=== PATIENT | male | born 1960 | race African-American/Black ===

== ENCOUNTER 2022-05-11 14:18 | Inpatient (IN) | payer OTHER ==
[2022-05-11 15:48] VITALS: BMI 17.6
[2022-05-11] MEDS ORDERED: IBUPROFEN 600 MG TABLET (FP) PO PRN (16:53)
[2022-05-11] MEDS ORDERED: BENZOCAINE/MENTHOL (CHLORASEPTIC ) LOZENGE MM PRN (16:53)
[2022-05-11] MEDS ORDERED: MAG HYDROX/AL HYDROX/SIMETH 30 ML UNIT-DOSE CUP PO PRN (16:53)
[2022-05-11] MEDS ORDERED: LOPERAMIDE HCL 2 MG CAPSULE PO PRN (16:53)
[2022-05-11] MEDS ORDERED: DICYCLOMINE HCL 10 MG CAPSULE PO PRN (16:53)
[2022-05-11] MEDS ORDERED: IBUPROFEN 400 MG TABLET (FP) PO PRN (16:53)
[2022-05-11] MEDS ORDERED: ONDANSETRON *ODT* 4 MG TABLET SL PRN (16:53)
[2022-05-11] MEDS ORDERED: BISMUTH SUBSALICYLATE 524 MG/30 ML PO PRN (16:53)
[2022-05-11] MEDS ORDERED: MAGNESIUM HYDROX 2400MG/30ML ORAL SUSPENSION 30 ML CUP PO PRN (16:53)
[2022-05-11] MEDS ORDERED: ACETAMINOPHEN 325 MG TABLET (FP) PO PRN ×2 (16:53)
[2022-05-11] MEDS ORDERED: NICOTINE 10 MG CARTRIDGE (INHALER) IH PRN (16:53)
[2022-05-11] MEDS ORDERED: METHOCARBAMOL 500 MG TABLET PO PRN (16:53)
[2022-05-11] MEDS ORDERED: MAGNESIUM CITRATE 300 ML BOTTLE PO PRN (16:53)
[2022-05-11] MEDS: PRENATAL VITAMINS W/ FOLIC ACID TABLET (FP) PO SCH (18:32)
[2022-05-11] MEDS: hydrOXYzine PAMOATE 25 MG CAPSULE (FP) PO SCH ×2 (18:42→22:26)
[2022-05-11] MEDS ORDERED: amLODIPine BESYLATE 5 MG TABLET (FP) PO ONE (19:03)
[2022-05-11] MEDS ORDERED: QUEtiapine FUMARATE 400 MG TABLET PO ONE (22:00)
[2022-05-11] MEDS ORDERED: QUEtiapine FUMARATE 200 MG TABLET PO ONE (22:00)
[2022-05-11] MEDS ORDERED: traZODone HCL 150 MG TABLET PO ONE (22:00)
[2022-05-11] MEDS ORDERED: traZODone HCL 50 MG TABLET (FP) PO ONE (22:00)
[2022-05-11] MEDS: MELATONIN 5 MG TABLETS PO SCH (22:25)
[2022-05-11] MEDS: THIAMINE HCL 100 MG TABLET (FP) PO SCH (22:25)
[2022-05-12] MEDS: hydrOXYzine PAMOATE 25 MG CAPSULE (FP) PO SCH (07:10)
[2022-05-12] MEDS ORDERED: hydrOXYzine PAMOATE 25 MG CAPSULE (FP) PO PRN (09:38)
[2022-05-12] MEDS ORDERED: methaDONE HCL 10 MG TABLET PO SCH (09:45)
[2022-05-12] MEDS: methaDONE 80 MG, methaDONE 20 MG PO SCH (09:52)
[2022-05-12] MEDS: PRENATAL VITAMINS W/ FOLIC ACID TABLET (FP) PO SCH (09:53)
[2022-05-12 10:10] LABS: HEMOGLOBIN 10.9 GM/dL (11.7-16.9); MCHC 33.1 g/dl (32.0-35.9); MEAN CELL VOLUME 87.7 fl (80-96); MEAN PLT VOLUME 8.5 fl (7.5-11.1); PLATELET COUNT 261 10^3/uL (134-434); RBC 3.76 M/mm3 (4.00-5.60); RDW 12.5 % (11.9-15.9); WHITE BLOOD COUNT 8.2 K/mm3 (4.0-10.0)
[2022-05-12 10:17] LABS: CALCIUM 8.9 mg/dL (8.5-10.1)
[2022-05-12 10:18] LABS: ALBUMIN 3.2 g/dl (3.4-5.0); BLOOD UREA NITROGEN 7.3 mg/dL (7-18)
[2022-05-12 10:21] LABS: CREATININE 0.9 mg/dL (0.55-1.3)
[2022-05-12] MEDS: amLODIPine BESYLATE 5 MG TABLET (FP) PO SCH (10:21)
[2022-05-12 10:22] LABS: BILIRUBIN,TOTAL 0.8 mg/dL (0.2-1); TOT PROT 7.8 g/dl (6.4-8.2)
[2022-05-12] MEDS ORDERED: traZODone HCL 100 MG TABLET (FP) PO SCH (22:00)
[2022-05-12] MEDS ORDERED: QUEtiapine FUMARATE 200 MG TABLET PO SCH ×2 (22:00)
[2022-05-12] MEDS ORDERED: QUEtiapine FUMARATE 400 MG TABLET PO SCH (22:00)
[2022-05-12] MEDS: THIAMINE HCL 100 MG TABLET (FP) PO SCH (22:24)
[2022-05-12] MEDS: MELATONIN 5 MG TABLETS PO SCH (22:24)
[2022-05-13] MEDS: methaDONE 80 MG, methaDONE 20 MG PO SCH (05:49)
[2022-05-13 09:40] VITALS: BP 136/81; PULSE 67; RESP 18; TEMP 97.1
[2022-05-13] MEDS: amLODIPine BESYLATE 5 MG TABLET (FP) PO SCH (10:22)
[2022-05-13] MEDS: PRENATAL VITAMINS W/ FOLIC ACID TABLET (FP) PO SCH (10:22)
== END 2022-05-13 11:14 | disposition home or self-care (01) | DRG 773 ==
LOC: YASAS 14:18 → Y3N 17:25
PROVIDERS: ADMIT Allergy & Immunology; ATTEND Surgery
PROC: HZ2ZZZZ Detoxification Services for Substance Abuse Treatment (ICD-10-PCS; principal; 2022-05-11)
DX: F10.230 Alcohol dependence with withdrawal, uncomplicated (principal); F11.10 Opioid abuse, uncomplicated; F12.10 Cannabis abuse, uncomplicated; F17.210 Nicotine dependence, cigarettes, uncomplicated; F32.A Depression, unspecified; G47.00 Insomnia, unspecified; Z56.0 Unemployment, unspecified
CPT/HCPCS: 36415; 80053; 80061; 85027; 86780; C9803-CS; U0003; U0005

== ENCOUNTER 2022-11-24 13:52 | Inpatient (IN) | payer OTHER ==
[2022-11-24 14:42] VITALS: BMI 16.6
[2022-11-24] MEDS ORDERED: ONDANSETRON *ODT* 4 MG TABLET SL PRN (18:51)
[2022-11-24] MEDS ORDERED: P-EPHED 60MG/TRIPROLIDI 2.5MG TABLET PO PRN (18:51)
[2022-11-24] MEDS ORDERED: DICYCLOMINE HCL 10 MG CAPSULE PO PRN (18:51)
[2022-11-24] MEDS ORDERED: guaiFENesin 200 MG/10 ML 10 ML UNIT-DOSE CUPS PO PRN (18:51)
[2022-11-24] MEDS ORDERED: ACETAMINOPHEN 325 MG TABLET (FP) PO PRN (18:51)
[2022-11-24] MEDS ORDERED: IBUPROFEN 400 MG TABLET (FP) PO PRN (18:51)
[2022-11-24] MEDS ORDERED: LOPERAMIDE HCL 2 MG CAPSULE PO PRN (18:51)
[2022-11-24] MEDS ORDERED: BISMUTH SUBSALICYLATE 524 MG/30 ML PO PRN (18:51)
[2022-11-24] MEDS ORDERED: BENZOCAINE/MENTHOL (CHLORASEPTIC ) LOZENGE MM PRN (18:51)
[2022-11-24] MEDS ORDERED: MELATONIN 5 MG TABLETS PO PRN (18:51)
[2022-11-24] MEDS ORDERED: MAG HYDROX/AL HYDROX/SIMETH 30 ML UNIT-DOSE CUP PO PRN (18:51)
[2022-11-24] MEDS ORDERED: NALOXONE HCL 0.4 MG/ML VIAL IM PRN (18:51)
[2022-11-24] MEDS ORDERED: MAGNESIUM HYDROX 2400MG/30ML ORAL SUSPENSION 30 ML CUP PO PRN (18:51)
[2022-11-24] MEDS ORDERED: IBUPROFEN 600 MG TABLET (FP) PO PRN (18:51)
[2022-11-24] MEDS ORDERED: POLYETHYLENE GLYCOL (HEALTHYLAX) 3350 17 GM PACKET PO PRN (18:51)
[2022-11-24] MEDS ORDERED: diazePAM 5 MG TABLET PO PRN (18:58)
[2022-11-24] MEDS: THIAMINE HCL 100 MG TABLET (FP) PO SCH (22:15)
[2022-11-24] MEDS: diazePAM 5 MG TABLET PO SCH (22:15)
[2022-11-24] MEDS ORDERED: QUEtiapine FUMARATE 400 MG TABLET PO ONE (23:00)
[2022-11-25] MEDS: diazePAM 5 MG TABLET PO SCH ×4 (05:28→22:08)
[2022-11-25] MEDS ORDERED: methaDONE 80 MG, methaDONE 10 MG PO ONE (09:15)
[2022-11-25] MEDS ORDERED: methaDONE HCL 10 MG TABLET PO SCH (09:15)
[2022-11-25] MEDS: PRENATAL VITAMINS W/ FOLIC ACID TABLET (FP) PO SCH (10:13)
[2022-11-25] MEDS: amLODIPine BESYLATE 5 MG TABLET (FP) PO SCH (10:17)
[2022-11-25] MEDS ORDERED: methaDONE HCL 10 MG TABLET PO ONE (11:18)
[2022-11-25] MEDS: FOLIC ACID 1 MG TABLET (FP) PO SCH (12:01)
[2022-11-25 12:16] LABS: HEMATOCRIT 26.8 % (35.4-49); HEMOGLOBIN 9.3 GM/dL (11.7-16.9); MCH 31.1 pg (25.7-33.7); MCHC 34.8 g/dl (32.0-35.9); MEAN CELL VOLUME 89.3 fl (80-96); MEAN PLT VOLUME 7.9 fl (7.5-11.1); PLATELET COUNT 149 10^3/uL (134-434); WHITE BLOOD COUNT 4.6 K/mm3 (4.0-10.0)
[2022-11-25 12:39] LABS: ALBUMIN 2.8 g/dl (3.4-5.0); BLOOD UREA NITROGEN 7.2 mg/dL (7-18); CALCIUM 8.4 mg/dL (8.5-10.1)
[2022-11-25 12:44] LABS: BILIRUBIN,TOTAL 1.1 mg/dL (0.2-1); TOT PROT 7.1 g/dl (6.4-8.2)
[2022-11-25] MEDS: ACETAMINOPHEN 325 MG TABLET (FP) PO PRN (15:01)
[2022-11-25] MEDS: QUEtiapine FUMARATE 400 MG TABLET PO SCH (22:08)
[2022-11-25] MEDS: THIAMINE HCL 100 MG TABLET (FP) PO SCH (22:08)
[2022-11-26] MEDS: methaDONE 80 MG, methaDONE 10 MG PO SCH (05:58)
[2022-11-26] MEDS: diazePAM 5 MG TABLET PO SCH ×3 (05:59→22:18)
[2022-11-26] MEDS: PRENATAL VITAMINS W/ FOLIC ACID TABLET (FP) PO SCH (10:13)
[2022-11-26] MEDS: amLODIPine BESYLATE 5 MG TABLET (FP) PO SCH (10:14)
[2022-11-26] MEDS: FOLIC ACID 1 MG TABLET (FP) PO SCH (10:14)
[2022-11-26 10:27] LABS: HEMATOCRIT 28.6 % (35.4-49); HEMOGLOBIN 9.7 GM/dL (11.7-16.9); MCH 30.7 pg (25.7-33.7); MEAN CELL VOLUME 90.5 fl (80-96); MEAN PLT VOLUME 8.9 fl (7.5-11.1); PLATELET COUNT 178 10^3/uL (134-434); RBC 3.16 M/mm3 (4.00-5.60); RDW 12.9 % (11.9-15.9); RETICULOCYTES 1.91 % (0.5-1.5); WHITE BLOOD COUNT 6.7 K/mm3 (4.0-10.0)
[2022-11-26 11:04] LABS: CALCIUM 8.8 mg/dL (8.5-10.1)
[2022-11-26 11:05] LABS: ALBUMIN 3.1 g/dl (3.4-5.0); BLOOD UREA NITROGEN 4.8 mg/dL (7-18)
[2022-11-26 11:08] LABS: CREATININE 1.1 mg/dL (0.55-1.3); TOT PROT 7.4 g/dl (6.4-8.2)
[2022-11-26] MEDS: ACETAMINOPHEN 325 MG TABLET (FP) PO PRN (15:05)
[2022-11-26] MEDS: THIAMINE HCL 100 MG TABLET (FP) PO SCH (22:18)
[2022-11-26] MEDS: QUEtiapine FUMARATE 400 MG TABLET PO SCH (22:18)
[2022-11-27] MEDS: diazePAM 5 MG TABLET PO SCH ×2 (06:08→18:02)
[2022-11-27] MEDS: methaDONE 80 MG, methaDONE 10 MG PO SCH (06:08)
[2022-11-27] MEDS: amLODIPine BESYLATE 5 MG TABLET (FP) PO SCH (10:32)
[2022-11-27] MEDS: FOLIC ACID 1 MG TABLET (FP) PO SCH (10:32)
[2022-11-27] MEDS: PRENATAL VITAMINS W/ FOLIC ACID TABLET (FP) PO SCH (10:32)
[2022-11-27] MEDS: QUEtiapine FUMARATE 400 MG TABLET PO SCH (22:12)
[2022-11-27] MEDS: THIAMINE HCL 100 MG TABLET (FP) PO SCH (22:12)
[2022-11-28] MEDS: methaDONE 80 MG, methaDONE 10 MG PO SCH (05:52)
[2022-11-28] MEDS ORDERED: diazePAM 5 MG TABLET PO ONE (06:00)
[2022-11-28] MEDS: FOLIC ACID 1 MG TABLET (FP) PO SCH (10:06)
[2022-11-28] MEDS: PRENATAL VITAMINS W/ FOLIC ACID TABLET (FP) PO SCH (10:06)
[2022-11-28] MEDS: amLODIPine BESYLATE 5 MG TABLET (FP) PO SCH (10:06)
[2022-11-28 13:21] VITALS: BP 107/70; PULSE 91; RESP 16; TEMP 98.4
== END 2022-11-28 15:32 | disposition other institution (70) | DRG 773 ==
LOC: YASAS 13:52 → Y6N 19:40
PROVIDERS: ADMIT Allergy & Immunology; ATTEND Surgery
PROC: HZ2ZZZZ Detoxification Services for Substance Abuse Treatment (ICD-10-PCS; principal; 2022-11-24)
DX: F10.230 Alcohol dependence with withdrawal, uncomplicated (principal); F11.20 Opioid dependence, uncomplicated; F12.20 Cannabis dependence, uncomplicated; F17.210 Nicotine dependence, cigarettes, uncomplicated; F20.9 Schizophrenia, unspecified; F33.1 Major depressive disorder, recurrent, moderate; F19.282 Other psychoactive substance dependence with psychoactive substance-induced sleep disorder; F19.24 Other psychoactive substance dependence with psychoactive substance-induced mood disorder; D64.9 Anemia, unspecified; I10 Essential (primary) hypertension
CPT/HCPCS: 36415; 80053; 82607; 82746; 83540; 83550; 85027; 85045; 86780; 87811; 93005; 93010; C9803-CS; U0003; U0005

== ENCOUNTER 2022-11-28 15:42 | Inpatient (IN) | payer OTHER ==
[~2022-11-28 15:42] MED LIST: ACETAMINOPHEN 325 MG TABLET (FP) PO PRN; BENZOCAINE/MENTHOL (CHLORASEPTIC ) LOZENGE MM PRN; IBUPROFEN 400 MG TABLET (FP) PO PRN; LOPERAMIDE HCL 2 MG CAPSULE PO PRN; MAG HYDROX/AL HYDROX/SIMETH 30 ML UNIT-DOSE CUP PO PRN; MAGNESIUM HYDROX 2400MG/30ML ORAL SUSPENSION 30 ML CUP PO PRN; NICOTINE 7 MG/24 HOURS TOPICAL PATCH TD PRN; NICOTINE POLACRILEX 2 MG GUM BUC PRN; POLYETHYLENE GLYCOL (HEALTHYLAX) 3350 17 GM PACKET PO PRN; guaiFENesin 200 MG/10 ML 10 ML UNIT-DOSE CUPS PO PRN; hydrOXYzine PAMOATE 25 MG CAPSULE (FP) PO PRN
[2022-11-28] MEDS: THIAMINE HCL 100 MG TABLET (FP) PO SCH (21:14)
[2022-11-28] MEDS: MELATONIN 5 MG TABLETS PO SCH (21:14)
[2022-11-28] MEDS: QUEtiapine FUMARATE 200 MG TABLET PO SCH (21:14)
[2022-11-28] MEDS: NICOTINE 10 MG CARTRIDGE (INHALER) IH PRN (22:30)
[2022-11-29] MEDS ORDERED: methaDONE HCL 10 MG TABLET PO SCH (06:00)
[2022-11-29] MEDS: methaDONE 80 MG, methaDONE 10 MG PO SCH (06:21)
[2022-11-29] MEDS: PRENATAL VITAMINS W/ FOLIC ACID TABLET (FP) PO SCH (09:27)
[2022-11-29] MEDS: amLODIPine BESYLATE 5 MG TABLET (FP) PO SCH (09:27)
[2022-11-29] MEDS: NICOTINE 10 MG CARTRIDGE (INHALER) IH PRN (09:28)
[2022-11-29] MEDS: THIAMINE HCL 100 MG TABLET (FP) PO SCH (21:06)
[2022-11-29] MEDS: MELATONIN 5 MG TABLETS PO SCH (21:06)
[2022-11-29] MEDS: QUEtiapine FUMARATE 200 MG TABLET PO SCH (21:06)
[2022-11-30] MEDS: methaDONE 80 MG, methaDONE 10 MG PO SCH (06:39)
[2022-11-30] MEDS: PRENATAL VITAMINS W/ FOLIC ACID TABLET (FP) PO SCH (10:42)
[2022-11-30] MEDS: amLODIPine BESYLATE 5 MG TABLET (FP) PO SCH (10:45)
[2022-11-30] MEDS: FERROUS SO4 325 MG TABLET (FP) PO SCH (17:09)
[2022-11-30] MEDS: QUEtiapine FUMARATE 200 MG TABLET PO SCH (21:23)
[2022-11-30] MEDS: MELATONIN 5 MG TABLETS PO SCH (21:24)
[2022-11-30] MEDS: THIAMINE HCL 100 MG TABLET (FP) PO SCH (21:24)
[2022-12-01] MEDS: methaDONE 80 MG, methaDONE 10 MG PO SCH (06:51)
[2022-12-01] MEDS: FERROUS SO4 325 MG TABLET (FP) PO SCH ×2 (07:04→17:03)
[2022-12-01] MEDS: PRENATAL VITAMINS W/ FOLIC ACID TABLET (FP) PO SCH (10:00)
[2022-12-01] MEDS: amLODIPine BESYLATE 5 MG TABLET (FP) PO SCH (10:01)
[2022-12-01] MEDS: QUEtiapine FUMARATE 200 MG TABLET PO SCH (21:04)
[2022-12-01] MEDS: MELATONIN 5 MG TABLETS PO SCH (21:05)
[2022-12-01] MEDS: THIAMINE HCL 100 MG TABLET (FP) PO SCH (21:05)
[2022-12-02] MEDS: methaDONE 80 MG, methaDONE 10 MG PO SCH (06:16)
[2022-12-02] MEDS: FERROUS SO4 325 MG TABLET (FP) PO SCH ×2 (07:11→17:42)
[2022-12-02] MEDS: amLODIPine BESYLATE 5 MG TABLET (FP) PO SCH (09:50)
[2022-12-02] MEDS: PRENATAL VITAMINS W/ FOLIC ACID TABLET (FP) PO SCH (09:50)
[2022-12-02] MEDS ORDERED: BISACODYL 5 MG TABLET.DR (FP) PO ONE (10:30)
[2022-12-02] MEDS: DOCUSATE SODIUM 100 MG CAPSULE (FP) PO SCH ×2 (14:40→21:04)
[2022-12-02] MEDS: THIAMINE HCL 100 MG TABLET (FP) PO SCH (21:04)
[2022-12-02] MEDS: QUEtiapine FUMARATE 200 MG TABLET PO SCH (21:04)
[2022-12-02] MEDS: MELATONIN 5 MG TABLETS PO SCH (21:04)
[2022-12-03] MEDS: methaDONE 80 MG, methaDONE 10 MG PO SCH (06:19)
[2022-12-03] MEDS: DOCUSATE SODIUM 100 MG CAPSULE (FP) PO SCH ×3 (06:20→21:04)
[2022-12-03] MEDS: FERROUS SO4 325 MG TABLET (FP) PO SCH ×2 (07:11→17:23)
[2022-12-03] MEDS: PRENATAL VITAMINS W/ FOLIC ACID TABLET (FP) PO SCH (09:40)
[2022-12-03] MEDS: amLODIPine BESYLATE 5 MG TABLET (FP) PO SCH (11:18)
[2022-12-03] MEDS: QUEtiapine FUMARATE 200 MG TABLET PO SCH (21:04)
[2022-12-03] MEDS: MELATONIN 5 MG TABLETS PO SCH (21:04)
[2022-12-03] MEDS: THIAMINE HCL 100 MG TABLET (FP) PO SCH (21:04)
[2022-12-03] MEDS: traZODone HCL 50 MG TABLET (FP) PO SCH (21:05)
[2022-12-04] MEDS: DOCUSATE SODIUM 100 MG CAPSULE (FP) PO SCH ×3 (06:10→21:03)
[2022-12-04] MEDS: methaDONE 80 MG, methaDONE 10 MG PO SCH (06:11)
[2022-12-04] MEDS: FERROUS SO4 325 MG TABLET (FP) PO SCH ×2 (07:05→16:51)
[2022-12-04] MEDS: PRENATAL VITAMINS W/ FOLIC ACID TABLET (FP) PO SCH (09:33)
[2022-12-04] MEDS: amLODIPine BESYLATE 5 MG TABLET (FP) PO SCH (09:34)
[2022-12-04] MEDS: THIAMINE HCL 100 MG TABLET (FP) PO SCH (21:03)
[2022-12-04] MEDS: traZODone HCL 50 MG TABLET (FP) PO SCH (21:03)
[2022-12-04] MEDS: QUEtiapine FUMARATE 200 MG TABLET PO SCH (21:03)
[2022-12-04] MEDS: NICOTINE 10 MG CARTRIDGE (INHALER) IH PRN (21:04)
[2022-12-04] MEDS: MELATONIN 5 MG TABLETS PO SCH (21:04)
[2022-12-05] MEDS: methaDONE 80 MG, methaDONE 10 MG PO SCH (06:10)
[2022-12-05] MEDS: DOCUSATE SODIUM 100 MG CAPSULE (FP) PO SCH ×3 (06:10→21:00)
[2022-12-05] MEDS: FERROUS SO4 325 MG TABLET (FP) PO SCH ×2 (07:31→16:50)
[2022-12-05] MEDS: PRENATAL VITAMINS W/ FOLIC ACID TABLET (FP) PO SCH (09:53)
[2022-12-05] MEDS: amLODIPine BESYLATE 5 MG TABLET (FP) PO SCH (09:54)
[2022-12-05] MEDS: traZODone HCL 50 MG TABLET (FP) PO SCH (21:00)
[2022-12-05] MEDS: QUEtiapine FUMARATE 200 MG TABLET PO SCH (21:01)
[2022-12-05] MEDS: MELATONIN 5 MG TABLETS PO SCH (21:01)
[2022-12-05] MEDS: THIAMINE HCL 100 MG TABLET (FP) PO SCH (21:01)
[2022-12-06] MEDS: methaDONE 80 MG, methaDONE 10 MG PO SCH (06:27)
[2022-12-06] MEDS: DOCUSATE SODIUM 100 MG CAPSULE (FP) PO SCH ×3 (06:28→21:14)
[2022-12-06] MEDS: FERROUS SO4 325 MG TABLET (FP) PO SCH ×2 (07:04→18:06)
[2022-12-06] MEDS: PRENATAL VITAMINS W/ FOLIC ACID TABLET (FP) PO SCH (09:26)
[2022-12-06] MEDS: amLODIPine BESYLATE 5 MG TABLET (FP) PO SCH (09:26)
[2022-12-06] MEDS: THIAMINE HCL 100 MG TABLET (FP) PO SCH (21:14)
[2022-12-06] MEDS: MELATONIN 5 MG TABLETS PO SCH (21:14)
[2022-12-06] MEDS: QUEtiapine FUMARATE 200 MG TABLET PO SCH (21:14)
[2022-12-06] MEDS: traZODone HCL 50 MG TABLET (FP) PO SCH (21:14)
[2022-12-06] MEDS: NICOTINE 10 MG CARTRIDGE (INHALER) IH PRN (22:39)
[2022-12-07] MEDS: methaDONE 80 MG, methaDONE 10 MG PO SCH (06:17)
[2022-12-07] MEDS: DOCUSATE SODIUM 100 MG CAPSULE (FP) PO SCH ×3 (06:17→21:06)
[2022-12-07] MEDS: FERROUS SO4 325 MG TABLET (FP) PO SCH ×2 (07:15→17:04)
[2022-12-07] MEDS: amLODIPine BESYLATE 5 MG TABLET (FP) PO SCH (09:27)
[2022-12-07] MEDS: PRENATAL VITAMINS W/ FOLIC ACID TABLET (FP) PO SCH (09:27)
[2022-12-07] MEDS: NICOTINE 10 MG CARTRIDGE (INHALER) IH PRN (09:27)
[2022-12-07] MEDS: traZODone HCL 50 MG TABLET (FP) PO SCH (21:06)
[2022-12-07] MEDS: MELATONIN 5 MG TABLETS PO SCH (21:06)
[2022-12-07] MEDS: QUEtiapine FUMARATE 200 MG TABLET PO SCH (21:06)
[2022-12-07] MEDS: THIAMINE HCL 100 MG TABLET (FP) PO SCH (21:06)
[2022-12-08] MEDS: DOCUSATE SODIUM 100 MG CAPSULE (FP) PO SCH ×3 (06:21→21:18)
[2022-12-08] MEDS: methaDONE 80 MG, methaDONE 10 MG PO SCH (06:21)
[2022-12-08] MEDS: NICOTINE 10 MG CARTRIDGE (INHALER) IH PRN (06:59)
[2022-12-08] MEDS: FERROUS SO4 325 MG TABLET (FP) PO SCH ×2 (06:59→16:55)
[2022-12-08] MEDS: PRENATAL VITAMINS W/ FOLIC ACID TABLET (FP) PO SCH (09:23)
[2022-12-08] MEDS: amLODIPine BESYLATE 5 MG TABLET (FP) PO SCH (09:24)
[2022-12-08] MEDS: QUEtiapine FUMARATE 200 MG TABLET PO SCH (21:18)
[2022-12-08] MEDS: THIAMINE HCL 100 MG TABLET (FP) PO SCH (21:18)
[2022-12-08] MEDS: traZODone HCL 50 MG TABLET (FP) PO SCH (21:18)
[2022-12-08] MEDS: MELATONIN 5 MG TABLETS PO SCH (21:19)
[2022-12-09] MEDS: methaDONE 80 MG, methaDONE 10 MG PO SCH (06:56)
[2022-12-09] MEDS: DOCUSATE SODIUM 100 MG CAPSULE (FP) PO SCH ×3 (06:56→21:04)
[2022-12-09] MEDS: NICOTINE 10 MG CARTRIDGE (INHALER) IH PRN ×2 (06:58→14:35)
[2022-12-09] MEDS: FERROUS SO4 325 MG TABLET (FP) PO SCH ×2 (07:00→17:00)
[2022-12-09] MEDS: PRENATAL VITAMINS W/ FOLIC ACID TABLET (FP) PO SCH (09:41)
[2022-12-09] MEDS: amLODIPine BESYLATE 5 MG TABLET (FP) PO SCH (09:42)
[2022-12-09] MEDS: MELATONIN 5 MG TABLETS PO SCH (21:04)
[2022-12-09] MEDS: QUEtiapine FUMARATE 200 MG TABLET PO SCH (21:04)
[2022-12-09] MEDS: THIAMINE HCL 100 MG TABLET (FP) PO SCH (21:04)
[2022-12-09] MEDS: traZODone HCL 50 MG TABLET (FP) PO SCH (21:04)
[2022-12-10] MEDS: methaDONE 80 MG, methaDONE 10 MG PO SCH (06:10)
[2022-12-10] MEDS: DOCUSATE SODIUM 100 MG CAPSULE (FP) PO SCH (06:11)
[2022-12-10 07:07] VITALS: BP 137/80; PULSE 96; RESP 16; TEMP 98
[2022-12-10] MEDS: FERROUS SO4 325 MG TABLET (FP) PO SCH (07:20)
[2022-12-10] MEDS: amLODIPine BESYLATE 5 MG TABLET (FP) PO SCH (09:24)
[2022-12-10] MEDS: PRENATAL VITAMINS W/ FOLIC ACID TABLET (FP) PO SCH (09:24)
== END 2022-12-10 09:30 | disposition home or self-care (01) | DRG 772 ==
LOC: YASAS 15:42 → Y5N 15:43
PROVIDERS: ADMIT Allergy & Immunology; ATTEND Allergy & Immunology
PROC: HZ42ZZZ Group Counseling for Substance Abuse Treatment, Cognitive-Behavioral (ICD-10-PCS; principal; 2022-11-28)
DX: F10.20 Alcohol dependence, uncomplicated (principal); F11.20 Opioid dependence, uncomplicated; D50.9 Iron deficiency anemia, unspecified; I10 Essential (primary) hypertension; K59.00 Constipation, unspecified; R63.4 Abnormal weight loss; Z68.1 Body mass index [BMI] 19.9 or less, adult
CPT/HCPCS: 36415; 86803

== ENCOUNTER 2023-01-17 17:52 | Inpatient (IN) | payer OTHER ==
[2023-01-17 18:43] VITALS: BMI 18.8
[2023-01-17] MEDS ORDERED: BENZONATATE 200 MG CAPSULE PO PRN (19:09)
[2023-01-17] MEDS ORDERED: POLYETHYLENE GLYCOL (HEALTHYLAX) 3350 17 GM PACKET PO PRN (19:09)
[2023-01-17] MEDS ORDERED: NALOXONE HCL (KLOXXADO) 8 MG SPRAY NS PRN (19:09)
[2023-01-17] MEDS ORDERED: NALOXONE HCL 0.4 MG/ML VIAL IM PRN (19:09)
[2023-01-17] MEDS ORDERED: hydrOXYzine PAMOATE 25 MG CAPSULE (FP) PO PRN (19:09)
[2023-01-17] MEDS ORDERED: MAG HYDROX/AL HYDROX/SIMETH 30 ML UNIT-DOSE CUP PO PRN (19:09)
[2023-01-17] MEDS ORDERED: NICOTINE 10 MG CARTRIDGE (INHALER) IH PRN (19:09)
[2023-01-17] MEDS ORDERED: BENZOCAINE/MENTHOL (CHLORASEPTIC ) LOZENGE MM PRN (19:09)
[2023-01-17] MEDS ORDERED: ACETAMINOPHEN 325 MG TABLET (FP) PO PRN (19:09)
[2023-01-17] MEDS ORDERED: IBUPROFEN 600 MG TABLET (FP) PO PRN (19:09)
[2023-01-17] MEDS ORDERED: IBUPROFEN 400 MG TABLET (FP) PO PRN (19:09)
[2023-01-17] MEDS ORDERED: guaiFENesin 600 MG TABLET.ER (FP) PO PRN (19:09)
[2023-01-17] MEDS ORDERED: MAGNESIUM HYDROX 2400MG/30ML ORAL SUSPENSION 30 ML CUP PO PRN (19:09)
[2023-01-17] MEDS ORDERED: P-EPHED 60MG/TRIPROLIDI 2.5MG TABLET PO PRN (19:09)
[2023-01-17] MEDS: THIAMINE HCL 100 MG TABLET (FP) PO SCH (22:25)
[2023-01-17] MEDS ORDERED: QUEtiapine FUMARATE 400 MG TABLET PO ONE (23:00)
[2023-01-17] MEDS ORDERED: traZODone HCL 150 MG TABLET PO ONE (23:00)
[2023-01-18 01:05] LABS: URINE APPEARANCE CLEAR; URINE BILIRUBIN NEGATIVE (NEGATIVE); URINE COLOR YELLOW; URINE GLUCOSE (UA) NEGATIVE (NEGATIVE); URINE KETONE NEGATIVE (NEGATIVE); URINE LEUK ESTERASE 1+ (NEGATIVE); URINE NITRITE NEGATIVE (NEGATIVE); URINE PROTEIN NEGATIVE (NEGATIVE); URINE UROBILINOGEN 0.2 mg/dL (0.2-1.0)
[2023-01-18] MEDS: NAPROXEN 375 MG TABLET PO SCH ×3 (01:07→21:13)
[2023-01-18 03:09] LABS: URINE RBC 0.8 /uL (0-23.9)
[2023-01-18 03:10] LABS: EPI CELLS 18.7 /uL (0-25.1); HYALINE CASTS 0.12 /uL (0-3.1); URINE BACTERIA 132.6 /uL (0-1359); URINE WBC 17.1 /uL (0-25.8)
[2023-01-18] MEDS: methaDONE HCL 40 MG DISPERSABLE TABLET PO SCH (09:43)
[2023-01-18] MEDS: FERROUS SO4 325 MG TABLET (FP) PO SCH (09:44)
[2023-01-18] MEDS: NICOTINE 7 MG/24 HOURS TOPICAL PATCH TD SCH (09:45)
[2023-01-18] MEDS: PRENATAL VITAMINS W/ FOLIC ACID TABLET (FP) PO SCH (09:45)
[2023-01-18 11:51] LABS: HEMATOCRIT 30.3 % (35.4-49); HEMOGLOBIN 10.2 GM/dL (11.7-16.9); MCH 29.7 pg (25.7-33.7); MCHC 33.7 g/dl (32.0-35.9); MEAN CELL VOLUME 88.2 fl (80-96); MEAN PLT VOLUME 8.1 fl (7.5-11.1); PLATELET COUNT 356 10^3/uL (134-434); RBC 3.43 M/mm3 (4.00-5.60); RDW 13.3 % (11.9-15.9)
[2023-01-18 11:52] LABS: CALCIUM 8.6 mg/dL (8.5-10.1)
[2023-01-18 11:53] LABS: ALBUMIN 2.8 g/dl (3.4-5.0); BLOOD UREA NITROGEN 9.1 mg/dL (7-18)
[2023-01-18 11:57] LABS: CREATININE 0.9 mg/dL (0.55-1.3)
[2023-01-18 11:58] LABS: BILIRUBIN,TOTAL 0.5 mg/dL (0.2-1); TOT PROT 6.6 g/dl (6.4-8.2)
[2023-01-18] MEDS: THIAMINE HCL 100 MG TABLET (FP) PO SCH (21:15)
[2023-01-18] MEDS ORDERED: QUEtiapine FUMARATE 200 MG TABLET PO SCH ×2 (22:10→22:30)
[2023-01-19] MEDS: methaDONE HCL 40 MG DISPERSABLE TABLET PO SCH (06:35)
[2023-01-19] MEDS: NAPROXEN 375 MG TABLET PO SCH ×2 (10:00→21:08)
[2023-01-19] MEDS: FERROUS SO4 325 MG TABLET (FP) PO SCH (10:00)
[2023-01-19] MEDS: PRENATAL VITAMINS W/ FOLIC ACID TABLET (FP) PO SCH (10:00)
[2023-01-19] MEDS: NICOTINE 7 MG/24 HOURS TOPICAL PATCH TD SCH (10:00)
[2023-01-19] MEDS: NICOTINE POLACRILEX 2 MG GUM BUC PRN (20:34)
[2023-01-19] MEDS: MELATONIN 5 MG TABLETS PO PRN (21:08)
[2023-01-19] MEDS: QUEtiapine FUMARATE 300 MG TABLET PO SCH (21:09)
[2023-01-19] MEDS: THIAMINE HCL 100 MG TABLET (FP) PO SCH (21:10)
[2023-01-19] MEDS ORDERED: QUEtiapine FUMARATE 200 MG TABLET PO SCH (22:00)
[2023-01-20] MEDS: methaDONE HCL 40 MG DISPERSABLE TABLET PO SCH (06:42)
[2023-01-20] MEDS: FERROUS SO4 325 MG TABLET (FP) PO SCH (09:43)
[2023-01-20] MEDS: NICOTINE 7 MG/24 HOURS TOPICAL PATCH TD SCH (09:44)
[2023-01-20] MEDS: NAPROXEN 375 MG TABLET PO SCH ×2 (09:44→21:08)
[2023-01-20] MEDS: PRENATAL VITAMINS W/ FOLIC ACID TABLET (FP) PO SCH (09:45)
[2023-01-20] MEDS: THIAMINE HCL 100 MG TABLET (FP) PO SCH (21:09)
[2023-01-20] MEDS: QUEtiapine FUMARATE 300 MG TABLET PO SCH (21:10)
[2023-01-21] MEDS: methaDONE HCL 40 MG DISPERSABLE TABLET PO SCH (06:23)
[2023-01-21] MEDS: NICOTINE POLACRILEX 2 MG GUM BUC PRN ×2 (06:25→21:10)
[2023-01-21] MEDS: PRENATAL VITAMINS W/ FOLIC ACID TABLET (FP) PO SCH (09:53)
[2023-01-21] MEDS: NICOTINE 7 MG/24 HOURS TOPICAL PATCH TD SCH (09:54)
[2023-01-21] MEDS: NAPROXEN 375 MG TABLET PO SCH ×2 (09:54→21:09)
[2023-01-21] MEDS: FERROUS SO4 325 MG TABLET (FP) PO SCH (09:54)
[2023-01-21] MEDS: QUEtiapine FUMARATE 300 MG TABLET PO SCH (21:08)
[2023-01-21] MEDS: THIAMINE HCL 100 MG TABLET (FP) PO SCH (21:08)
[2023-01-21] MEDS: MELATONIN 5 MG TABLETS PO PRN (21:09)
[2023-01-22] MEDS: methaDONE HCL 40 MG DISPERSABLE TABLET PO SCH (07:01)
[2023-01-22] MEDS: FERROUS SO4 325 MG TABLET (FP) PO SCH (10:04)
[2023-01-22] MEDS: NAPROXEN 375 MG TABLET PO SCH ×2 (10:04→21:30)
[2023-01-22] MEDS: NICOTINE 7 MG/24 HOURS TOPICAL PATCH TD SCH (10:04)
[2023-01-22] MEDS: PRENATAL VITAMINS W/ FOLIC ACID TABLET (FP) PO SCH (10:04)
[2023-01-22] MEDS: LOPERAMIDE HCL 2 MG CAPSULE PO PRN (18:22)
[2023-01-22] MEDS: MELATONIN 5 MG TABLETS PO PRN (21:29)
[2023-01-22] MEDS: THIAMINE HCL 100 MG TABLET (FP) PO SCH (21:30)
[2023-01-22] MEDS: QUEtiapine FUMARATE 300 MG TABLET PO SCH (21:30)
[2023-01-23] MEDS: methaDONE HCL 40 MG DISPERSABLE TABLET PO SCH (06:16)
[2023-01-23] MEDS: LOPERAMIDE HCL 2 MG CAPSULE PO PRN (06:17)
[2023-01-23] MEDS: PRENATAL VITAMINS W/ FOLIC ACID TABLET (FP) PO SCH (09:47)
[2023-01-23] MEDS: NICOTINE 7 MG/24 HOURS TOPICAL PATCH TD SCH (09:48)
[2023-01-23] MEDS: FERROUS SO4 325 MG TABLET (FP) PO SCH (09:48)
[2023-01-23] MEDS: NICOTINE POLACRILEX 2 MG GUM BUC PRN ×2 (09:48→20:14)
[2023-01-23] MEDS: NAPROXEN 375 MG TABLET PO SCH ×2 (09:49→21:01)
[2023-01-23] MEDS: amLODIPine BESYLATE 5 MG TABLET (FP) PO SCH (13:26)
[2023-01-23] MEDS: THIAMINE HCL 100 MG TABLET (FP) PO SCH (21:01)
[2023-01-23] MEDS: QUEtiapine FUMARATE 300 MG TABLET PO SCH (21:02)
[2023-01-24] MEDS: methaDONE HCL 40 MG DISPERSABLE TABLET PO SCH (06:36)
[2023-01-24] MEDS: FERROUS SO4 325 MG TABLET (FP) PO SCH (09:49)
[2023-01-24] MEDS: NAPROXEN 375 MG TABLET PO SCH ×2 (09:49→21:17)
[2023-01-24] MEDS: NICOTINE 7 MG/24 HOURS TOPICAL PATCH TD SCH (09:50)
[2023-01-24] MEDS: PRENATAL VITAMINS W/ FOLIC ACID TABLET (FP) PO SCH (09:51)
[2023-01-24] MEDS: amLODIPine BESYLATE 5 MG TABLET (FP) PO SCH (09:51)
[2023-01-24] MEDS: NICOTINE POLACRILEX 2 MG GUM BUC PRN ×2 (09:51→21:20)
[2023-01-24] MEDS: THIAMINE HCL 100 MG TABLET (FP) PO SCH (21:18)
[2023-01-24] MEDS: QUEtiapine FUMARATE 300 MG TABLET PO SCH (21:18)
[2023-01-24] MEDS: MELATONIN 5 MG TABLETS PO PRN (21:19)
[2023-01-25] MEDS: methaDONE HCL 40 MG DISPERSABLE TABLET PO SCH (06:06)
[2023-01-25] MEDS: amLODIPine BESYLATE 5 MG TABLET (FP) PO SCH (09:51)
[2023-01-25] MEDS: FERROUS SO4 325 MG TABLET (FP) PO SCH (09:51)
[2023-01-25] MEDS: PRENATAL VITAMINS W/ FOLIC ACID TABLET (FP) PO SCH (09:51)
[2023-01-25] MEDS: NAPROXEN 375 MG TABLET PO SCH ×2 (09:52→21:19)
[2023-01-25] MEDS: NICOTINE 7 MG/24 HOURS TOPICAL PATCH TD SCH (09:52)
[2023-01-25] MEDS: NICOTINE POLACRILEX 2 MG GUM BUC PRN ×2 (17:53→21:20)
[2023-01-25] MEDS: MELATONIN 5 MG TABLETS PO PRN (21:19)
[2023-01-25] MEDS: QUEtiapine FUMARATE 400 MG TABLET PO SCH (21:19)
[2023-01-25] MEDS: THIAMINE HCL 100 MG TABLET (FP) PO SCH (21:19)
[2023-01-26] MEDS: methaDONE HCL 40 MG DISPERSABLE TABLET PO SCH (05:57)
[2023-01-26] MEDS: NICOTINE POLACRILEX 2 MG GUM BUC PRN ×3 (05:59→21:20)
[2023-01-26] MEDS: NAPROXEN 375 MG TABLET PO SCH ×2 (09:58→21:19)
[2023-01-26] MEDS: amLODIPine BESYLATE 5 MG TABLET (FP) PO SCH (09:59)
[2023-01-26] MEDS: FERROUS SO4 325 MG TABLET (FP) PO SCH (09:59)
[2023-01-26] MEDS: NICOTINE 7 MG/24 HOURS TOPICAL PATCH TD SCH (09:59)
[2023-01-26] MEDS: PRENATAL VITAMINS W/ FOLIC ACID TABLET (FP) PO SCH (09:59)
[2023-01-26] MEDS: QUEtiapine FUMARATE 400 MG TABLET PO SCH (21:19)
[2023-01-26] MEDS: THIAMINE HCL 100 MG TABLET (FP) PO SCH (21:19)
[2023-01-26] MEDS: MELATONIN 5 MG TABLETS PO PRN (21:19)
[2023-01-27] MEDS: methaDONE HCL 40 MG DISPERSABLE TABLET PO SCH (06:25)
[2023-01-27] MEDS: PRENATAL VITAMINS W/ FOLIC ACID TABLET (FP) PO SCH (09:50)
[2023-01-27] MEDS: FERROUS SO4 325 MG TABLET (FP) PO SCH (09:51)
[2023-01-27] MEDS: NICOTINE 7 MG/24 HOURS TOPICAL PATCH TD SCH (09:51)
[2023-01-27] MEDS: amLODIPine BESYLATE 5 MG TABLET (FP) PO SCH (09:51)
[2023-01-27] MEDS: NAPROXEN 375 MG TABLET PO SCH ×2 (09:51→21:11)
[2023-01-27] MEDS: NICOTINE POLACRILEX 2 MG GUM BUC PRN (09:52)
[2023-01-27] MEDS: QUEtiapine FUMARATE 400 MG TABLET PO SCH (21:12)
[2023-01-27] MEDS: THIAMINE HCL 100 MG TABLET (FP) PO SCH (21:12)
[2023-01-27] MEDS: traZODone HCL 50 MG TABLET (FP) PO SCH (21:59)
[2023-01-28] MEDS: methaDONE HCL 40 MG DISPERSABLE TABLET PO SCH (06:21)
[2023-01-28] MEDS: NICOTINE POLACRILEX 2 MG GUM BUC PRN ×2 (06:22→21:29)
[2023-01-28] MEDS: FERROUS SO4 325 MG TABLET (FP) PO SCH (09:47)
[2023-01-28] MEDS: NAPROXEN 375 MG TABLET PO SCH ×2 (09:48→21:28)
[2023-01-28] MEDS: PRENATAL VITAMINS W/ FOLIC ACID TABLET (FP) PO SCH (09:54)
[2023-01-28] MEDS: NICOTINE 7 MG/24 HOURS TOPICAL PATCH TD SCH (09:54)
[2023-01-28] MEDS: amLODIPine BESYLATE 5 MG TABLET (FP) PO SCH (09:54)
[2023-01-28] MEDS: QUEtiapine FUMARATE 400 MG TABLET PO SCH (21:28)
[2023-01-28] MEDS: traZODone HCL 50 MG TABLET (FP) PO SCH (21:28)
[2023-01-28] MEDS: THIAMINE HCL 100 MG TABLET (FP) PO SCH (21:28)
[2023-01-29] MEDS: methaDONE HCL 40 MG DISPERSABLE TABLET PO SCH (06:14)
[2023-01-29] MEDS: NICOTINE POLACRILEX 2 MG GUM BUC PRN ×3 (06:14→21:26)
[2023-01-29] MEDS: PRENATAL VITAMINS W/ FOLIC ACID TABLET (FP) PO SCH (09:47)
[2023-01-29] MEDS: FERROUS SO4 325 MG TABLET (FP) PO SCH (09:48)
[2023-01-29] MEDS: NICOTINE 7 MG/24 HOURS TOPICAL PATCH TD SCH (09:48)
[2023-01-29] MEDS: NAPROXEN 375 MG TABLET PO SCH ×2 (09:48→21:24)
[2023-01-29] MEDS: amLODIPine BESYLATE 5 MG TABLET (FP) PO SCH (09:48)
[2023-01-29] MEDS: traZODone HCL 50 MG TABLET (FP) PO SCH (21:24)
[2023-01-29] MEDS: THIAMINE HCL 100 MG TABLET (FP) PO SCH (21:25)
[2023-01-29] MEDS: QUEtiapine FUMARATE 400 MG TABLET PO SCH (21:25)
[2023-01-30] MEDS: NICOTINE POLACRILEX 2 MG GUM BUC PRN ×2 (06:29→21:17)
[2023-01-30] MEDS: methaDONE HCL 40 MG DISPERSABLE TABLET PO SCH (06:31)
[2023-01-30] MEDS: PRENATAL VITAMINS W/ FOLIC ACID TABLET (FP) PO SCH (09:59)
[2023-01-30] MEDS: FERROUS SO4 325 MG TABLET (FP) PO SCH (10:00)
[2023-01-30] MEDS: NAPROXEN 375 MG TABLET PO SCH ×2 (10:00→21:14)
[2023-01-30] MEDS: NICOTINE 7 MG/24 HOURS TOPICAL PATCH TD SCH (10:01)
[2023-01-30] MEDS: amLODIPine BESYLATE 5 MG TABLET (FP) PO SCH (10:02)
[2023-01-30] MEDS: THIAMINE HCL 100 MG TABLET (FP) PO SCH (21:14)
[2023-01-30] MEDS: traZODone HCL 50 MG TABLET (FP) PO SCH (21:14)
[2023-01-30] MEDS: QUEtiapine FUMARATE 400 MG TABLET PO SCH (21:14)
[2023-01-31] MEDS: methaDONE HCL 40 MG DISPERSABLE TABLET PO SCH (06:17)
[2023-01-31] MEDS: NICOTINE POLACRILEX 2 MG GUM BUC PRN ×2 (06:19→21:20)
[2023-01-31] MEDS: NAPROXEN 375 MG TABLET PO SCH ×2 (09:45→21:19)
[2023-01-31] MEDS: FERROUS SO4 325 MG TABLET (FP) PO SCH (09:45)
[2023-01-31] MEDS: amLODIPine BESYLATE 5 MG TABLET (FP) PO SCH (09:45)
[2023-01-31] MEDS: PRENATAL VITAMINS W/ FOLIC ACID TABLET (FP) PO SCH (09:45)
[2023-01-31] MEDS: NICOTINE 7 MG/24 HOURS TOPICAL PATCH TD SCH (09:46)
[2023-01-31] MEDS: THIAMINE HCL 100 MG TABLET (FP) PO SCH (21:19)
[2023-01-31] MEDS: traZODone HCL 50 MG TABLET (FP) PO SCH (21:19)
[2023-01-31] MEDS: QUEtiapine FUMARATE 400 MG TABLET PO SCH (21:19)
[2023-02-01 05:56] VITALS: RESP 18
[2023-02-01] MEDS: methaDONE HCL 40 MG DISPERSABLE TABLET PO SCH (06:11)
[2023-02-01] MEDS: NICOTINE POLACRILEX 2 MG GUM BUC PRN ×3 (06:11→21:30)
[2023-02-01] MEDS: NAPROXEN 375 MG TABLET PO SCH ×2 (09:42→21:28)
[2023-02-01] MEDS: NICOTINE 7 MG/24 HOURS TOPICAL PATCH TD SCH (09:42)
[2023-02-01] MEDS: PRENATAL VITAMINS W/ FOLIC ACID TABLET (FP) PO SCH (09:42)
[2023-02-01] MEDS: amLODIPine BESYLATE 5 MG TABLET (FP) PO SCH (09:43)
[2023-02-01] MEDS: FERROUS SO4 325 MG TABLET (FP) PO SCH (09:43)
[2023-02-01] MEDS: THIAMINE HCL 100 MG TABLET (FP) PO SCH (21:29)
[2023-02-01] MEDS: QUEtiapine FUMARATE 400 MG TABLET PO SCH (21:29)
[2023-02-01] MEDS: traZODone HCL 100 MG TABLET (FP) PO SCH (21:30)
[2023-02-02] MEDS: methaDONE HCL 40 MG DISPERSABLE TABLET PO SCH (05:44)
[2023-02-02] MEDS: NICOTINE POLACRILEX 2 MG GUM BUC PRN ×3 (05:51→21:09)
[2023-02-02 07:03] VITALS: TEMP 97.5
[2023-02-02] MEDS: NAPROXEN 375 MG TABLET PO SCH ×2 (09:47→21:08)
[2023-02-02] MEDS: PRENATAL VITAMINS W/ FOLIC ACID TABLET (FP) PO SCH (09:47)
[2023-02-02] MEDS: NICOTINE 7 MG/24 HOURS TOPICAL PATCH TD SCH (09:48)
[2023-02-02] MEDS: FERROUS SO4 325 MG TABLET (FP) PO SCH (09:48)
[2023-02-02] MEDS: amLODIPine BESYLATE 5 MG TABLET (FP) PO SCH (09:48)
[2023-02-02 11:10] VITALS: BP 102/66; PULSE 89
[2023-02-02] MEDS: QUEtiapine FUMARATE 400 MG TABLET PO SCH (21:08)
[2023-02-02] MEDS: THIAMINE HCL 100 MG TABLET (FP) PO SCH (21:08)
[2023-02-02] MEDS: traZODone HCL 100 MG TABLET (FP) PO SCH (21:08)
[2023-02-03] MEDS: NICOTINE POLACRILEX 2 MG GUM BUC PRN (06:18)
[2023-02-03] MEDS: methaDONE HCL 40 MG DISPERSABLE TABLET PO SCH (06:18)
[2023-02-03] MEDS: NICOTINE 7 MG/24 HOURS TOPICAL PATCH TD SCH (09:08)
[2023-02-03] MEDS: NAPROXEN 375 MG TABLET PO SCH (09:08)
[2023-02-03] MEDS: amLODIPine BESYLATE 5 MG TABLET (FP) PO SCH (09:09)
[2023-02-03] MEDS: PRENATAL VITAMINS W/ FOLIC ACID TABLET (FP) PO SCH (09:09)
[2023-02-03] MEDS: FERROUS SO4 325 MG TABLET (FP) PO SCH (09:09)
== END 2023-02-03 10:00 | disposition home or self-care (01) | DRG 772 ==
LOC: YASAS 17:52 → Y5N 22:01
PROVIDERS: ADMIT Allergy & Immunology; ATTEND Psychiatry & Neurology Pain Medicine
PROC: HZ42ZZZ Group Counseling for Substance Abuse Treatment, Cognitive-Behavioral (ICD-10-PCS; principal; 2023-01-17)
DX: F11.20 Opioid dependence, uncomplicated (principal); F10.20 Alcohol dependence, uncomplicated; F17.210 Nicotine dependence, cigarettes, uncomplicated; F20.9 Schizophrenia, unspecified; F32.A Depression, unspecified; G47.00 Insomnia, unspecified; I10 Essential (primary) hypertension
CPT/HCPCS: 36415; 80053; 81003; 85027; 86780; C9803-CS; U0003; U0005